=== PATIENT | male | born 1990 | race Two or more races ===

== ENCOUNTER 2018-09-29 01:05 | Emergency (ER) | payer MEDICAID ==
[~2018-09-29] VITALS: Ht 172.7 cm; Wt 76.2 kg
--- NOTE | 2018-09-29 01:17 | NUR ---
Patient ambulated with stable gait. AAOx4. Speech is clear, speaks in complete sentences. No neuro deficits noted. Patient came in with c/o LLE numbness since 0000, localized to the calf and ankle. Respiratory even and unlabored, no cough, no sob. No cardiovascular distress noted, all pulses palpable. No GI/. Patient in bed at lowest position, side rails x2, call light within reach. Fall precautions implemented per protocol.
[2018-09-29] MEDS: IBUPROFEN 600 MG TABLET PO ONE (02:30)
[2018-09-29] MEDS ORDERED: IBUPROFEN 600 MG TABLET ONE (02:31)
--- NOTE | 2018-09-29 02:31 | NUR ---
Patient discharged to home in stable conditon. Written and verbal after care instructions given. Patient verbalizes understanding of instructions. Patient ambulated with stable gait.
[2018-09-29 02:32] VITALS: BP 135/80
== END 2018-09-29 02:33 | disposition home or self-care (01) ==
LOC: ER 01:09
DX: M54.16 Radiculopathy, lumbar region (principal); R20.2 Paresthesia of skin; Z88.8 Allergy status to other drugs, medicaments and biological substances
CPT/HCPCS: 72100; A4663